=== PATIENT | female | born 1950 | race Two or more races ===

== ENCOUNTER 2019-08-25 09:30 | Inpatient (IN) | payer OTHER ==
[~2019-08-25] VITALS: Ht 154.9 cm; Wt 88.9 kg
[2019-08-25] MEDS ORDERED: CLONAZEP PO (13:15)
[2019-08-25] MEDS ORDERED: FORTAMET1000 MG PO (13:16)
[2019-08-25] MEDS ORDERED: GLIMEPIRIDE4 MG PO (13:16)
[2019-08-25] MEDS ORDERED: LIPITOR40 M1 PO (13:17)
[2019-08-25] MEDS ORDERED: HYZAAR 100-251 EACH PO (13:17)
[2019-08-25] MEDS ORDERED: [UNRECOGNIZED DRUG - OTHER] PO (13:18)
[2019-08-25] MEDS ORDERED: HORIZANT300 MG PO ×2 (13:18→13:21)
[2019-08-25] MEDS ORDERED: PROTONIX40 MG PO (13:20)
[2019-08-25] MEDS ORDERED: GABAPENTIN PO (13:20)
[2019-08-25] MEDS ORDERED: LANTUS (13:22)
[2019-08-25] MEDS ORDERED: NASAL MIST126 ML (13:22)
== END 2019-09-06 13:21 | disposition home or self-care (01) | DRG 519 ==
LOC: O/R 09-01 05:45 → SURH 09-01 05:45
PROVIDERS: ADMIT Neurological Surgery; ATTEND Neurological Surgery
PROC: 0RB30ZZ Excision of Cervical Vertebral Disc, Open Approach (ICD-10-PCS; 2019-09-01)
PROC: 00NW0ZZ Release Cervical Spinal Cord, Open Approach (ICD-10-PCS; principal; 2019-09-01 07:00)
PROC: 3E0F7GC Introduction of Other Therapeutic Substance into Respiratory Tract, Via Natural or Artificial Opening (ICD-10-PCS; 2019-09-02)
PROC: BW24ZZZ Computerized Tomography (CT Scan) of Chest and Abdomen (ICD-10-PCS; 2019-09-04)
PROC: B54DZZZ Ultrasonography of Bilateral Lower Extremity Veins (ICD-10-PCS; 2019-09-04)
DX: M48.02 Spinal stenosis, cervical region (principal); J98.11 Atelectasis; G47.33 Obstructive sleep apnea (adult) (pediatric); I10 Essential (primary) hypertension; E66.8 Other obesity; F41.8 Other specified anxiety disorders; G47.36 Sleep related hypoventilation in conditions classified elsewhere; E11.42 Type 2 diabetes mellitus with diabetic polyneuropathy

== ENCOUNTER 2019-08-26 14:13 | Outpatient (CLI) | payer OTHER ==
[~2019-08-26 14:13] MED LIST: CLONAZEP PO; FORTAMET1000 MG PO; GABAPENTIN PO; GLIMEPIRIDE4 MG PO; HORIZANT300 MG PO; HYZAAR 100-251 EACH PO; LANTUS; LIPITOR40 M1 PO; NASAL MIST126 ML; PROTONIX40 MG PO; [UNRECOGNIZED DRUG - OTHER] PO
== END 2019-08-26 14:23 | disposition home or self-care (01) ==
LOC: NUCLEAR 14:13
PROVIDERS: ATTEND Neurological Surgery
DX: M81.0 Age-related osteoporosis without current pathological fracture (principal); Z13.820 Encounter for screening for osteoporosis